=== PATIENT | female | born 1995 | race Caucasian/White ===

== ENCOUNTER 2020-06-26 13:38 | Emergency (ER) | payer MEDICAID, OTHER, SELFPAY ==
[~2020-06-26] VITALS: Ht 157.5 cm; Wt 70.0 kg
[2020-06-26 14:30] LABS: BASOPHILS # (AUTO) 0.03 x10^3/uL (0-0.1); BASOPHILS % (AUTO) 0 % (0-1); EOSINOPHILS # (AUTO) 0.08 x10^3/uL (0-0.4); EOSINOPHILS % (AUTO) 1 % (1-7); LYMPHOCYTES # (AUTO) 1.94 x10^3/uL (1-3.4); LYMPHOCYTES % (AUTO) 28 % (22-44); MD NO; MEAN CORPUSCULAR HEMOGLOBIN 29.8 pg (27.0-34.8); MEAN CORPUSCULAR HGB CONC 33.7 g/dL (32.4-35.8); MEAN CORPUSCULAR VOLUME 88.4 fL (80-100); MEAN PLATELET VOLUME 9.9 fL (7.4-10.4); MONOCYTES # (AUTO) 0.43 x10^3/uL (0.2-0.8); MONOCYTES % (AUTO) 6 % (2-9); NEUTROPHILS # (AUTO) 4.41 x10^3/uL (1.8-6.8); NEUTROPHILS % (AUTO) 64 % (42-75); PLATELET COUNT 216 x10^3/uL (130-400); RED BLOOD COUNT 4.83 x10^6/uL (3.82-5.3); RED CELL DISTRIBUTION WIDTH 12.9 % (9.6-15.2)
--- NOTE | 2020-06-26 14:37 | NUR ---
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
[2020-06-26 14:38] LABS: ANION GAP 5 mmol/L (5-15); CALCIUM 9.7 mg/dL (8.5-10.1); CHLORIDE 110 mmol/L (98-107); CREATININE 0.78 mg/dL (0.55-1.02)
[2020-06-26 14:39] LABS: ALBUMIN 4.3 g/dL (3.4-5.0)
[2020-06-26 14:40] LABS: MICROSCOPIC INDICATED
--- NOTE | 2020-06-26 14:51 | NUR ---
REPORT RECEIVED FROM MALU RAMIRES. PLAN OF CARE DISCUSSED
[2020-06-26 15:13] VITALS: BP 117/58
--- NOTE | 2020-06-26 15:33 | NUR ---
ERP IN ROOM FOR EVAL
== END 2020-06-26 15:51 | disposition home or self-care (01) ==
LOC: ED 15:22
DX: R11.2 Nausea with vomiting, unspecified (principal); R19.7 Diarrhea, unspecified; R10.84 Generalized abdominal pain
CPT/HCPCS: 36415; 80048; 81001; 82040; 84703; 85025; 87086; 99283

== ENCOUNTER 2020-06-27 17:00 | Emergency (ER) | payer OTHER ==
[~2020-06-27] VITALS: Ht 157.5 cm; Wt 71.1 kg
--- NOTE | 2020-06-27 17:17 | NUR ---
PATIENT WALKED BACK FROM TRIAGE WITH CHIEF C/O SOB, HEART PALPITATIONS, DIZZINESS, AND BILATERAL HAND NUMBNESS X1 DAY. PATIENT STATES THAT WHEN HER HANDS GO NUMB THEY "FREEZE UP AND I NEED TO MANUALLY MOVE MY THUMB."
[2020-06-27] MEDS ORDERED: LORazepam 1MG TABLET PO ONE (18:00)
[2020-06-27] MEDS ORDERED: LORazepam 1MG TABLET ONE (18:05)
--- NOTE | 2020-06-27 18:10 | NUR ---
PT RESTNG IN BED, ON PERSONAL PHONE, CALL LIGHT IN REACH. MEDICATED ORDERED.
[2020-06-27 18:12] LABS: BASOPHILS # (AUTO) 0.03 x10^3/uL (0-0.1); BASOPHILS % (AUTO) 1 % (0-1); EOSINOPHILS # (AUTO) 0.08 x10^3/uL (0-0.4); EOSINOPHILS % (AUTO) 1 % (1-7); LYMPHOCYTES # (AUTO) 2.19 x10^3/uL (1-3.4); LYMPHOCYTES % (AUTO) 29 % (22-44); MD NO; MEAN CORPUSCULAR HEMOGLOBIN 29.5 pg (27.0-34.8); MEAN CORPUSCULAR HGB CONC 33.4 g/dL (32.4-35.8); MEAN CORPUSCULAR VOLUME 88.2 fL (80-100); MONOCYTES # (AUTO) 0.49 x10^3/uL (0.2-0.8); MONOCYTES % (AUTO) 7 % (2-9); NEUTROPHILS # (AUTO) 4.81 x10^3/uL (1.8-6.8); NEUTROPHILS % (AUTO) 63 % (42-75); PLATELET COUNT 208 x10^3/uL (130-400); RED BLOOD COUNT 4.52 x10^6/uL (3.82-5.3); RED CELL DISTRIBUTION WIDTH 13.1 % (9.6-15.2)
[2020-06-27 18:24] LABS: ALANINE AMINOTRANSFERASE 15 U/L (12-78); ALBUMIN 4.1 g/dL (3.4-5.0); ANION GAP 10 mmol/L (5-15); CALCIUM 9.1 mg/dL (8.5-10.1); CHLORIDE 111 mmol/L (98-107); CREATININE 0.75 mg/dL (0.55-1.02)
[2020-06-27 18:28] LABS: ALKALINE PHOSPHATASE 58 U/L (45-117); BILIRUBIN,TOTAL 0.5 mg/dL (0.2-1.0); TOTAL PROTEIN 7.5 g/dL (6.4-8.2); TROPONIN I < 0.015 ng/mL (0.000-0.045)
--- NOTE | 2020-06-27 18:52 | NUR ---
Report from Garret hirsch to assume care
[2020-06-27 19:37] VITALS: BP 115/81
== END 2020-06-27 20:25 | disposition home or self-care (01) ==
LOC: ED 17:57
DX: F43.0 Acute stress reaction (principal); R06.00 Dyspnea, unspecified; R00.2 Palpitations; R42 Dizziness and giddiness; R07.89 Other chest pain; Z87.891 Personal history of nicotine dependence
CPT/HCPCS: 36415; 71045; 80053; 82330; 83735; 84484; 85025; 93005; 99285